=== PATIENT | female | born 1965 | race Native Hawaiian/Other Pacific Islander ===

== ENCOUNTER 2020-12-19 14:15 | Emergency (ER) | payer OTHER ==
[~2020-12-19] VITALS: Ht 180.3 cm; Wt 92.2 kg
[2020-12-19] MEDS ORDERED: LEVO50TA5 PO (14:26)
[2020-12-19] MEDS ORDERED: LISI2.5T9 PO (14:26)
[2020-12-19] MEDS ORDERED: LANTINJ4 SC (14:26)
[2020-12-19] MEDS ORDERED: ESTR1TAB PO (14:26)
[2020-12-19] MEDS ORDERED: ECOT81TA5 PO (14:27)
[2020-12-19 18:41] VITALS: BP 144/67
== END 2020-12-19 18:53 | disposition home or self-care (01) ==
LOC: M ED 14:15
DX: J06.9 Acute upper respiratory infection, unspecified (principal); E11.9 Type 2 diabetes mellitus without complications; E03.9 Hypothyroidism, unspecified; Z87.891 Personal history of nicotine dependence; Z79.82 Long term (current) use of aspirin; Z79.4 Long term (current) use of insulin; Z79.899 Other long term (current) drug therapy; Z88.5 Allergy status to narcotic agent